=== PATIENT | female | born 1960 | race Caucasian/White ===

== ENCOUNTER 2017-05-23 15:42 | Emergency (ER) | payer OTHER, SELFPAY ==
[~2017-05-23] VITALS: Ht 177.8 cm; Wt 82.5 kg
[2017-05-23 18:19] LABS: BASO % 0.5 % (0.0-1.0); EOS # 0.1 K/mm3 (0.0-0.50); EOS % 1.7 % (0.0-3.0); LARGE UNSTAINED CELL # 0.1 K/mm3 (0.0-0.4); LARGE UNSTAINED CELL % 1.5 % (0.0-4.0); LYMPH # 1.7 K/mm3 (1.5-4.5); LYMPH % 33.3 % (24.0-44.0); MEAN CORPUSCULAR HEMOGLOBIN 32.2 pg (27.0-33.0); MEAN CORPUSCULAR HGB CONC 34.9 g/dl (32.0-36.5); MEAN CORPUSCULAR VOLUME 92.3 fl (80.0-96.0); MONO # 0.2 K/mm3 (0.0-0.8); MONO % 4.8 % (0.0-5.0); NEUTROPHILS # 2.9 K/mm3 (1.8-7.7); NEUTROPHILS % 58.2 % (36.0-66.0); PLATELET COUNT, AUTOMATED 151 k/mm3 (150-450); RED CELL DISTRIBUTION WIDTH 12.7 % (11.5-14.5)
[2017-05-23 18:48] LABS: ANION GAP 7 MEQ/L (8-16); BLOOD UREA NITROGEN 14 MG/DL (7-18); CARBON DIOXIDE LEVEL 27 MEQ/L (21-32); CHLORIDE LEVEL 105 MEQ/L (98-107); CREATININE FOR GFR 0.97 MG/DL (0.55-1.02); GLOMERULAR FILTRATION RATE > 60.0 (>51); GLUCOSE, FASTING 94 MG/DL (70-105); SODIUM LEVEL 139 MEQ/L (136-145)
--- NOTE | 2017-05-23 19:06 | REP ---
CT BRAIN WITHOUT IV CONTRAST: CT brain is performed without IV contrast. Ventricles are normal in size and position. There is no midline shift. No abnormal densities are seen. There is no acute hemorrhage. There is no extra-axial fluid collection. Howard-white differentiation is well maintained. Visualized osseous structures appear unremarkable. IMPRESSION: Negative noncontrast CT brain. Signed by Harvey Howard MD 05/23/2017 08:19 P
--- NOTE | 2017-05-23 19:50 | REPUSA ---
MRI of the brain Clinical history: headache. Technique: Multiecho multiplanar MRI images of the brain were obtained without administration of cont rast. Diffusion weighted images with ADC mapping was also obtained. Findings: The ventricles and sulci are symmetric bilaterally. The brain parenchyma demonstrates uniform and nor mal signal on all sequences. There is no midline shift, mass effect, or extra-axial fluid collection. The midline intracranial structures do not demonstrate any gross abnormalities. The cervical cranial junction is intact. The orbits are unremarkable. The visualized paranasal sinuses and mastoid air ce lls are clear. The osseous structures and superficial soft tissues are unremarkable. The vascular str uctures demonstrate appropriate flow voids. Impression: Normal MRI of the Brain.
--- NOTE | 2017-05-23 19:50 | REPUSA ---
MRA of the brain Clinical history: headache. Technique: [id number] MRA images of the brain were obtained without administration of contrast. 3 -D MIP images were also obtained. Findings: The vascular structures extending from the distal carotid and vertebrobasilar arterial syst ems, through the [place], demonstrate normal caliber and contour. There is no evidence of an eurysm, stenosis, or thrombosis. Impression: Unremarkable MRA examination of the brain.
[2017-05-23 20:48] VITALS: BP 104/55
--- NOTE | 2017-05-24 11:34 | ECGEPIP ---
Stationary ECG Study [facility] - ED Test Date: 2017-05-23 Pat Name: LYNNETTE CARROLL Department: Room: - Gender: F Senior Information Systems Architect: miguelito : 1960 Requested By: Kiya Weber Order Number: [id number] Reading MD: Kiya Weber Measurements Intervals [place] Rate: 65 P: 63 VA: 180 QRS: 68 QRSD: 86 T: 60 QT: 392 QTc: 409 Interpretive Statements SINUS RHYTHM NSTTW ABNORMALITY NO PRIOR FOR COMPARISON Electronically Signed On 05-24-2017 11:33:54 EDT by Kiya Weber
[2017-05-28 00:09] LABS: Lyme Disease IgG Ab 18 kDa Ban Absent (.); Lyme Disease IgG Ab 23 kDa Ban Absent (.); Lyme Disease IgG Ab 28 kDa Ban Absent (.); Lyme Disease IgG Ab 30 kDa Ban Absent (.); Lyme Disease IgG Ab 39 kDa Ban Absent (.); Lyme Disease IgG Ab 41 kDa Ban Absent (.); Lyme Disease IgG Ab 45 kDa Ban Absent (.); Lyme Disease IgG Ab 58 kDa Ban Absent (.); Lyme Disease IgG Ab 66 kDa Ban Present (.); Lyme Disease IgG Ab 93 kDa Ban Absent (.); Lyme Disease IgG West Blot Int Negative (.); Lyme Disease IgG/IgM Antibodie <0.91 ISR (0.00-0.90); Lyme Disease IgM Ab 23 kDa Ban Absent (.); Lyme Disease IgM Ab 39 kDa Ban Absent (.); Lyme Disease IgM Ab 41 kDa Ban Absent (.); Lyme Disease IgM West Blot Int Negative (.)
== END 2017-05-23 21:10 | disposition home or self-care (01) ==
LOC: M ED 15:42
DX: H53.9 Unspecified visual disturbance (principal); Z80.0 Family history of malignant neoplasm of digestive organs; Z82.49 Family history of ischemic heart disease and other diseases of the circulatory system; Z91.040 Latex allergy status

== ENCOUNTER → 2020-06-29 | Outpatient (REF) | payer OTHER ==
[2020-06-30 14:27] LABS: HEMATOCRIT 42.1 % (36.0-47.0); MEAN CORPUSCULAR HEMOGLOBIN 31.3 pg (27.0-33.0); MEAN CORPUSCULAR HGB CONC 33.3 g/dl (32.0-36.5); PLATELET COUNT, AUTOMATED 160 10^3/uL (150-450); RED BLOOD COUNT 4.48 10^6/uL (4.00-5.40); WHITE BLOOD COUNT 4.5 10^3/uL (4.0-10.0)
[2020-06-30 14:52] LABS: ALBUMIN 3.9 GM/DL (3.2-5.2); ALT/SGPT 20 U/L (12-78); BILIRUBIN,TOTAL 0.4 MG/DL (0.2-1.0); BLOOD UREA NITROGEN 13 MG/DL (7-18); CALCIUM LEVEL 8.8 MG/DL (8.8-10.2); CARBON DIOXIDE LEVEL 28 MEQ/L (21-32); CHLORIDE LEVEL 108 MEQ/L (98-107); CREATININE FOR GFR 0.95 MG/DL (0.55-1.30); FREE T4 1.05 NG/DL (0.76-1.46); GLOMERULAR FILTRATION RATE > 60.0 (>45); GLUCOSE, FASTING 80 MG/DL (70-100); POTASSIUM SERUM 4.2 MEQ/L (3.5-5.1); SODIUM LEVEL 142 MEQ/L (136-145); TOTAL PROTEIN 6.7 GM/DL (6.4-8.2)
== END ==
LOC: M LABDRAWC 15:20
PROVIDERS: ATTEND Family Medicine
DX: R63.4 Abnormal weight loss (principal); L65.9 Nonscarring hair loss, unspecified

== ENCOUNTER → 2020-07-12 | Outpatient (REF) | payer OTHER ==
[2020-07-12 20:34] LABS: % LABILE ALKALINE PHOSPHATASE 78.7 %
== END ==
LOC: M SFHCCLAY 18:49 → M LABDRAWC 18:49
PROVIDERS: ATTEND Family Medicine
DX: R94.5 Abnormal results of liver function studies (principal)

== ENCOUNTER 2020-07-14 23:37 | Emergency (ER) | payer OTHER ==
[~2020-07-14] VITALS: Ht 172.7 cm; Wt 80.1 kg
[2020-07-15 00:35] LABS: BASO % 0.4 % (0.0-1.0); EOS # 0.1 10^3/uL (0.0-0.5); EOS % 0.8 % (0.0-3.0); HEMATOCRIT 40.3 % (36.0-47.0); HEMOGLOBIN 13.3 g/dl (12.0-15.5); LYMPH # 2.5 10^3/uL (1.5-5.0); MEAN CORPUSCULAR HEMOGLOBIN 30.7 pg (27.0-33.0); MEAN CORPUSCULAR VOLUME 93.1 fl (80.0-96.0); MONO # 0.4 10^3/uL (0.0-0.8); MONO % 5.6 % (0.0-5.0); NEUTROPHILS # 4.1 10^3/uL (1.5-8.5); NEUTROPHILS % 58.1 % (36.0-66.0); PLATELET COUNT, AUTOMATED 179 10^3/uL (150-450); RED BLOOD COUNT 4.33 10^6/uL (4.00-5.40); WHITE BLOOD COUNT 7.1 10^3/uL (4.0-10.0)
[2020-07-15 01:13] LABS: ALBUMIN 3.6 GM/DL (3.2-5.2); BILIRUBIN,DIRECT 0.1 MG/DL (0.0-0.2); BILIRUBIN,TOTAL 0.3 MG/DL (0.2-1.0); THYROID STIMULATING HORMONE 2.57 uIU/ML (0.358-3.740); TOTAL PROTEIN 6.7 GM/DL (6.4-8.2)
[2020-07-15] MEDS ORDERED: GASTROGRAFIN SOLUTION 30ML (Q9963) As Ordered ONE (01:18)
[2020-07-15] MEDS: GASTROGRAFIN SOLUTION 30ML PO SCH ×2 (01:36→01:51)
[2020-07-15] MEDS ORDERED: ISOVUE-370 76% 100ML VIAL As Ordered ONE (02:11)
--- NOTE | 2020-07-15 03:24 | REPVR ---
PROCEDURE INFORMATION: Exam: CT Abdomen And Pelvis With Contrast Exam date and time: 07/15/2020 1:11 AM Age: 59 years old Clinical indication: Abdominal pain; Generalized; Patient HX: Wt loss bowel habit changes; Additional info: Weight loss, bowel changes TECHNIQUE: Imaging protocol: Computed tomography of the abdomen and pelvis with intravenous contrast. Radiation optimization: All CT scans at this facility use at least one of these dose optimization techniques: automated exposure control; mA and/or kV adjustment per patient size (includes targeted exams where dose is matched to clinical indication); or iterative reconstruction. Contrast material: ISO; Contrast volume: 100 ml; Contrast route: INTRAVENOUS (IV); Other contrast: Oral, ggraphin, 600; COMPARISON: No relevant prior studies available. FINDINGS: Lungs: Minimal bibasilar fibro-atelectatic change with minimal bilateral lower lobe bronchiectasis. Liver: Probable minimal posterior right hepatic lobe cyst measuring 5 mm. Gallbladder and bile ducts: The gallbladder is somewhat contracted with no stones and question of slight pericholecystic induration. Pancreas: Normal. No ductal dilation. Spleen: Normal. No splenomegaly. Adrenals: Normal. No mass. Kidneys and ureters: Normal. No hydronephrosis. Stomach and bowel: Unremarkable. No obstruction. No mucosal thickening. Appendix: A normal appendix is seen. Intraperitoneal space: Unremarkable. No free air. No significant fluid collection. Vasculature: There is minimal atherosclerotic calcification of the abdominal aorta. Lymph nodes: Unremarkable. No enlarged lymph nodes. Bladder: Unremarkable as visualized. Reproductive: Unremarkable as visualized. Bones/joints: Increased lumbar lordosis with sclerotic focus against the superior endplate of L3 which is likely a bone island. Soft tissues: Bilateral breast implants are noted. Minimal fat filled umbilical hernia. IMPRESSION: 1. The gallbladder is somewhat contracted with no stones and question of slight pericholecystic induration. 2. Otherwise negative CT abdomen/pelvis. No mass or adenopathy. Electronically signed by: Vinny Gonzales On 07/15/2020 03:23:31 AM
[2020-07-15 03:56] VITALS: BP 110/62
== END 2020-07-15 03:58 | disposition home or self-care (01) ==
LOC: M ED 23:37
DX: G89.29 Other chronic pain (principal); R10.9 Unspecified abdominal pain; Z86.19 Personal history of other infectious and parasitic diseases; Z91.040 Latex allergy status
CPT/HCPCS: 74177; 80047; 80076; 82150; 83690; 84443; 85025; 93041; 99284; Q9967

== ENCOUNTER → 2020-07-17 | Outpatient (CLI) | payer OTHER ==
[2020-07-20 02:07] LABS: ALK PHOSPHATASE BONE SPECIFIC 30.7 ug/L (.); CREATININE URINE 73.8 mg/dL (Not Estab.)
== END ==
LOC: M PLALAB 11:10
PROVIDERS: ATTEND Internal Medicine Endocrinology, Diabetes & Metabolism
DX: M85.9 Disorder of bone density and structure, unspecified (principal)

== ENCOUNTER → 2020-07-18 | Outpatient (CLI) | payer OTHER ==
--- NOTE | 2020-08-01 12:25 | REPMRS ---
Patient History 3D TOMOSYNTHESIS WAS PERFORMED. The [facility] lifetime risk for breast cancer is 6.3%. The patient states she has not had a clinical breast exam in over a year. Patient is postmenopausal. Family history of pancreatic cancer at age 80 in father. Retro-pectoral saline implants in both breasts, 2012. Retro-pectoral silicone gel implants in both breasts, 1989. No Hormone Replacement Therapy VOLPARA DENSITY D. Digital Woman Screen Mammo: July 18, 2020 - Exam #: [id number] Bilateral CC and MLO view(s) were taken. Technologist: Chio Mays, Technologist Prior study comparison: 2014, diagnostic bilateral mammo, performed at [facility] [place]. FINDINGS: There are scattered fibroglandular densities. There has been no change in the appearance of the mammogram from the prior studies. There is a mild amount of residual fibroglandular tissue which is fairly symmetric. There is no interval development of dominant mass, architectural distortion, or clustered microcalcification suggestive of malignancy. Assessment: BI-RADS/ACR category 1 mammogram. Negative Mammogram. Recommendation Routine screening mammogram in 1 year (for women over age 40). This mammogram was interpreted with the aid of an FDA-approved computer-aided dectection system. Electronically Signed By: Eder Mckinney MD 08/01/20 1821
== END ==
LOC: M WHC 10:31
PROVIDERS: ATTEND Family Medicine
DX: Z12.31 Encounter for screening mammogram for malignant neoplasm of breast (principal)

== ENCOUNTER → 2020-07-24 | Outpatient (REF) | payer OTHER ==
[2020-08-02 14:12] LABS: FATS NEUTRAL Normal (.); FATS TOTAL Normal (.); H PYLORI STOOL ANTIGEN Negative (Negative); PANCREATIC ELASTASE STOOL 463 (>200)
== END ==
LOC: M LAB REF 13:18
PROVIDERS: ATTEND Nurse Practitioner Family
DX: R19.7 Diarrhea, unspecified (principal); R63.4 Abnormal weight loss; R74.8 Abnormal levels of other serum enzymes

== ENCOUNTER → 2021-08-22 | Outpatient (REF) | payer OTHER | LOC: M SFHCCLAY 15:12 | PROVIDERS: ATTEND Physician Assistant | DX: R82.90 Unspecified abnormal findings in urine (principal) ==

== ENCOUNTER → 2022-01-07 | Outpatient (REF) | payer OTHER ==
[2022-01-07 16:22] LABS: BILIRUBIN,TOTAL 0.5 MG/DL (0.2-1.0); CALCIUM LEVEL 9.5 MG/DL (8.8-10.2); CHOLESTEROL RISK RATIO 7.866 (<5); CREATININE FOR GFR 1.01 MG/DL (0.55-1.30); FREE T4 1.12 NG/DL (0.76-1.46); GLOMERULAR FILTRATION RATE 59.1 (>45); POTASSIUM SERUM 4.8 MEQ/L (3.5-5.1); THYROID STIMULATING HORMONE 1.36 uIU/ML (0.358-3.740); TOTAL PROTEIN 7.1 GM/DL (6.4-8.2)
[2022-01-07 16:28] LABS: HEMATOCRIT 44.2 % (36.0-47.0); HEMOGLOBIN 14.5 g/dl (12.0-15.5); MEAN CORPUSCULAR HEMOGLOBIN 30.5 pg (27.0-33.0); MEAN CORPUSCULAR HGB CONC 32.8 g/dl (32.0-36.5); MEAN CORPUSCULAR VOLUME 92.9 fl (80.0-96.0); PLATELET COUNT, AUTOMATED 190 10^3/uL (150-450); RED BLOOD COUNT 4.76 10^6/uL (4.00-5.40); WHITE BLOOD COUNT 4.8 10^3/uL (4.0-10.0)
== END ==
LOC: M SFHCCLAY 11:40
PROVIDERS: ATTEND Nurse Practitioner Family
DX: J02.9 Acute pharyngitis, unspecified (principal); Z13.220 Encounter for screening for lipoid disorders

== ENCOUNTER → 2022-03-08 | Outpatient (CLI) | payer SELFPAY | LOC: M WHC 14:06 | PROVIDERS: ATTEND Nurse Practitioner Family | DX: Z12.31 Encounter for screening mammogram for malignant neoplasm of breast (principal); Z78.0 Asymptomatic menopausal state; Z85.820 Personal history of malignant melanoma of skin ==

== ENCOUNTER → 2023-12-09 | Outpatient (REF) | payer OTHER ==
[2023-12-10 11:59] LABS: BASO % 0.3 % (0.0-1.0); EOS # 0.1 10^3/uL (0.0-0.5); EOS % 0.8 % (0.0-3.0); HEMATOCRIT 42.4 % (36.0-47.0); LYMPH # 1.6 10^3/uL (1.5-5.0); LYMPH % 26.7 % (24.0-44.0); MEAN CORPUSCULAR HEMOGLOBIN 31.1 pg (27.0-33.0); MEAN CORPUSCULAR VOLUME 94.2 fl (80.0-96.0); MONO # 0.6 10^3/uL (0.0-0.8); MONO % 9.3 % (2.0-8.0); NEUTROPHILS # 3.8 10^3/uL (1.5-8.5); NEUTROPHILS % 62.7 % (36.0-66.0); PLATELET COUNT, AUTOMATED 208 10^3/uL (150-450); WHITE BLOOD COUNT 6.1 10^3/uL (4.0-10.0)
[2023-12-10 12:46] LABS: ALBUMIN 3.5 G/DL (3.2-5.2); BLOOD UREA NITROGEN 11 MG/DL (9-23); CALCIUM LEVEL 8.4 MG/DL (8.3-10.6); CARBON DIOXIDE LEVEL 24 MMOL/L (20-31); CHLORIDE LEVEL 109 MMOL/L (98-107); CREATININE FOR GFR 0.96 MG/DL (0.55-1.30); GLOMERULAR FILTRATION RATE > 60.0 (>45); GLUCOSE, FASTING 88 MG/DL (74-106); PHOSPHORUS LEVEL 3.8 MG/DL (2.4-5.1); POTASSIUM SERUM 5.2 MMOL/L (3.5-5.1); SODIUM LEVEL 141 MMOL/L (136-145)
== END ==
LOC: M SFHCCLAY 15:00
PROVIDERS: ATTEND Nurse Practitioner Family
DX: R05.1 Acute cough (principal); R30.0 Dysuria

== ENCOUNTER → 2025-01-12 | Outpatient (CLI) | payer MEDICARE | LOC: M WHC 11:23 | PROVIDERS: ATTEND Nurse Practitioner Family | DX: Z12.31 Encounter for screening mammogram for malignant neoplasm of breast (principal); R92.30 Dense breasts, unspecified ==

== ENCOUNTER → 2025-02-09 | Outpatient (CLI) | payer MEDICARE | LOC: M CLY 15:07 | PROVIDERS: ATTEND Nurse Practitioner Family | DX: M19.071 Primary osteoarthritis, right ankle and foot (principal) ==

== ENCOUNTER → 2025-05-03 | Outpatient (REF) | payer MEDICARE ==
[2025-05-03 19:07] LABS: PLATELET COUNT, AUTOMATED 167 10^3/uL (150-450)
[2025-05-03 19:11] LABS: CHOLESTEROL LEVEL 191.0 MG/DL (<200); CHOLESTEROL RISK RATIO 6.77 (<5); FREE T4 1.15 NG/DL (0.89-1.76); IRON (FE) 91.0 UG/DL (50-170); LDL CHOLESTEROL 127.0 MG/DL (<100); NON-HDL-C 162.8 MG/DL; PERCENT SATURATION 34.2 % (13.2-45.0); TRIGLYCERIDES LEVEL 179.0 MG/DL (<150)
[2025-05-03 19:37] LABS: ESTIMATED AVERAGE GLUCOSE 100.0 MG/DL (60-110)
[2025-05-03 20:29] LABS: CALCIUM LEVEL 8.8 MG/DL (8.3-10.6); CARBON DIOXIDE LEVEL 25.0 MMOL/L (20-31); CHLORIDE LEVEL 105.0 MMOL/L (98-107); CREATININE FOR GFR 1.03 MG/DL (0.55-1.30); GLOMERULAR FILTRATION RATE 60.3 (>45); POTASSIUM SERUM 4.3 MMOL/L (3.5-5.1); SODIUM LEVEL 142.0 MMOL/L (136-145)
== END ==
LOC: M SFHCCLAY 10:30
PROVIDERS: ATTEND Nurse Practitioner Family
DX: Z01.818 Encounter for other preprocedural examination (principal); Z79.899 Other long term (current) drug therapy

== ENCOUNTER → 2025-10-12 | Outpatient (REF) | payer MEDICARE ==
[2025-10-14 12:37] LABS: HPV APTIMA Not Detected (Not Detected)
== END ==
LOC: M SFHCCLAY 10:20
PROVIDERS: ATTEND Nurse Practitioner Family
DX: Z01.419 Encounter for gynecological examination (general) (routine) without abnormal findings (principal); R87.610 Atypical squamous cells of undetermined significance on cytologic smear of cervix (ASC-US)
CPT/HCPCS: 87624; G0123